=== PATIENT | female | born 1965 | race Caucasian/White ===

== ENCOUNTER 2016-10-08 15:34 | Emergency (ER) | payer BC ==
--- NOTE | 2016-10-08 16:34 | ERNOTE ---
Medical Problem HPI - Narrative Date of Service: 10/08/16 - General Chief Complaint: General Assessment Time Seen by Provider: 10/08/16 16:32 Source: patient, RN notes reviewed Exam Limitations: no limitations - Immun/Allergies/Home Medications Immunizations: IMMUNIZATION HX Immunizations Up to Date Yes History of Influenza Vaccine Yes Hx Pneumococcal Vaccination No Allergies/Adverse Reactions: Allergies No Known Allergies Allergy (Verified 10/08/16 15:55) Home Medications: HOME MEDICATIONS Benzonatate [Tessalon] 200 mg PO TID 10/08/16 [Last Taken Unknown] Cephalexin [Keflex] 500 mg PO TID 10/08/16 [Last Taken Unknown] Cyclobenzaprine HCl [Flexeril] 10 mg PO TID PRN #30 tab 10/08/16 [Last Taken Unknown] Venlafaxine HCl [Effexor] 75 mg PO DAILY 10/08/16 [Last Taken Unknown] - History of Present History Narrative: Justa is a 50 year old female who presents to the ED by private vehicle for right lateral rib pain that began suddenly earlier this afternoon. She was diagnosed with bronchitis 2 weeks ago. She reports that she felt good this morning and like she was finally getting over her illness. She was lifting a bag of ice cream mix over her head today when she felt a "pop" in her ribs and experienced sudden pain. The pain has continued since and is worse with any movement or coughing. She has not taken anything for it. Review of Systems - Review of Systems Constitutional: Present: recent illness. Absent: fever, chills EYE: Present: no symptoms reported ENT: Present: no symptoms reported Respiratory: Present: cough. Absent: shortness of breath, wheezing Cardiology: Absent: palpitations, syncope Gastrointestinal/Abdominal: Absent: nausea, vomiting, abdominal pain Genitourinary: Present: no symptoms reported Musculoskeletal: Absent: back pain, neck pain Skin: Absent: lesions, lumps, change in color Neurological: Absent: headache, dizziness/light-headedness, seizure, weakness, numbness Endocrine: Present: no symptoms reported Hematologic/Lymphatic: Present: no symptoms reported Psych: Present: no symptoms reported - Patient's Past Medical History Patient History - Medical: Depression Patient History - Cardiac/Respiratory: No pertinent hx Patient History - Cancer: No Hx of Cancer Patient History - Surgical Procedures: No surgical history LMP (females 10-50): Menopausal - Social History Living Situations: other Smoking Status: Never smoker Have you smoked in the past 12 months: No Do you dip or chew tobacco: No Alcohol Use: none Drug Use: none Physical Exam - Physical Exam General Appearance: Present: wd/wn, alert, no apparent distress Neck: Present: normal inspection, nontender, supple, full range of motion Respiratory: Present: no respiratory distress, normal breath sounds, no accessory muscle use, lungs clear, chest tenderness - right lateral ribs Cardiovascular/Chest: Present: regular rate, rhythm, no murmur Back Exam: Present: normal inspection, no vertebral tenderness Neurological Exam: Present: alert, oriented, normal mood/affect, no motor/ sensory deficits Skin Exam: Present: normal color, warm/dry ED Progress - Vital Signs Patient's Vital Signs:: I have reviewed the patient's vital signs. Vital Signs: Vital Signs 10/08/16 15:47 Temperature 36.0 C L Pulse Rate 95 Respiratory 20 Rate Blood Pressure 129/58 O2 Sat by Pulse 100 Oximetry - Progress/Reassessment Chief Complaint: General Assessment Progress:: Improved Departure - Departure Clinical Impression: Chest wall muscle strain Qualifiers: Encounter type: initial encounter Qualified Code(s): S29.011A - Strain of muscle and tendon of front wall of thorax, initial encounter Disposition: Home self-care Condition: Good Instructions: Muscle Strain, [id number], Form - Excuse from Work, School, or Physical Activity Additional Instructions: Ibuprofen 600 mg every 6 hours with food as needed for pain Ice or heat to sore area Muscle relaxant as needed, may cause drowsiness Referrals: Jose Gaffney DO [Primary Care Provider] - Prescriptions: Cyclobenzaprine HCl [Flexeril] 10 mg PO TID PRN #30 tab PRN Reason: MUSCLE SPASMS
[2016-10-08] MEDS ORDERED: KETOROLAC TROMETHAMINE 60 MG/2 ML VIAL IM ONE ×2 (16:44→16:56)
[2016-10-08 16:58] VITALS: BP 134/84
[2016-10-08] MEDS ORDERED: CYCLOBENZAPRINE HCL 10 MG TABLET PO ONE (16:58)
[2016-10-08] MEDS ORDERED: CYCLOBENZAPRINE HCL 10 MG TABLET ONE (17:01)
== END 2016-10-08 17:06 | disposition home or self-care (01) ==
LOC: ER 15:34
DX: S29.011A Strain of muscle and tendon of front wall of thorax, initial encounter (principal); X50.9XXA Other and unspecified overexertion or strenuous movements or postures, initial encounter

== ENCOUNTER 2018-05-23 17:17 | Observation (INO) ==
--- NOTE | 2018-05-23 18:16 | ERNOTE ---
Neuro HPI ER Record Presenting Symptoms: confusion Time Seen by Provider: 05/23/18 17:43 Source: patient, family Exam Limitations: clinical condition Immunizations: IMMUNIZATION HX Immunizations Up to Date Yes History of Influenza Vaccine Yes Hx Pneumococcal Vaccination No Allergies/Adverse Reactions: Allergies Allergy/AdvReac Type Severity Reaction Status Date / Time No Known Allergies Allergy Verified 05/23/18 17:30 Home Medications: HOME MEDICATIONS duloxetine 30 mg capsule,delayed release 30 mg PO DAILY #30 cap 05/06/18 [Last Taken Unknown] - History of Present Illness Narrative: Patient is not sure why she is here, feels anxious, but has no other complaints. When asked about work states that she had a normal day without any incidents, knows name and location, not sure about date. States that she lives with her son, not sure about his age. According to her boss, she stole money at the store earlier (which is uncharacteristic for her), when confronted she got angry and made off the wall comments, stated that she wanted to drive her car off the road. She was brought in by a coworker She denies any suicidal thoughts at this point. Her sisters who are with her state that she was started on cymbalta just over a months ago, denies any other medication use Review of Systems - Review of Systems Constitutional: Absent: recent illness, fever EYE: Absent: vision changes ENT: Absent: nose congestion, sore throat Respiratory: Absent: shortness of breath Cardiology: Absent: chest pain Gastrointestinal/Abdominal: Absent: nausea Genitourinary: Present: no symptoms reported Musculoskeletal: Absent: back pain Neurological: Absent: headache, weakness, numbness Medical History (Last Reviewed 05/23/18 @ 18:26 by Khushboo Rebollar MD) Ankle pain Onset Date: Unknown Bronchitis Onset Date: Unknown Bunion Onset Date: Unknown Depression Onset Date: Unknown Foot pain Onset Date: Unknown Internal derangement of knee Onset Date: Unknown Surgical History: Surgical History (Last Reviewed 05/23/18 @ 18:26 by Khushboo Rebollar MD) H/O arthroscopic knee surgery Onset Date: Unknown History of bunionectomy Onset Date: Unknown Family History: Family History (Last Updated 04/26/18 @ 08:34 by Cliff Fiore) Father Cancer Mother Cancer Social History: Preferred Language Swedish Smoking Status Never smoker Abuse History No History of abuse Psych History Hx of Depression,Currently on Meds Alcohol Use none Drug Use none Physical Exam - Physical Exam General Appearance: Present: wd/wn, alert, mild distress, anxious Head Exam: Present: normal inspection, no evidence of injury Eye Exam: Normal inspection: bilateral, PERRL: bilateral, EOMI: bilateral Ears, Nose, Throat: Present: normal ENT inspection, normal pharynx Neck: Present: normal inspection, nontender, supple, full range of motion Respiratory: Present: no respiratory distress, normal breath sounds, no accessory muscle use, lungs clear Cardiovascular/Chest: Present: regular rate, rhythm, no murmur Gastrointestinal/Abdominal: Present: nontender, nondistended, soft Extremity Exam: Present: normal inspection, normal range of motion, no edema Neurological Exam: Present: alert, oriented, normal mood/affect, no motor/ sensory deficits, 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 - Vital Signs Patient's Vital Signs:: I have reviewed the patient's vital signs. Vital Signs: Vital Signs 05/23/18 17:18 Temperature 37.2 C Pulse Rate 97 Respiratory Rate 16 Blood Pressure 158/105 H O2 Sat by Pulse Oximetry 99 - EKG EKG: NSR, other - Twave inversions anterior leads EKG read: Interp. by me - CT/Ultrasound CT/Ultrasound Narrative: CT head: no acute - Progress/Reassessment Chief Complaint: Psychiatric Problem Progress Note-Subjective: 05/23/18 19:32 discussed test results, patient doesn't remember having a CT or having blood drawn offered admission to patient and discussed with sisters, patient agrees to admission at this time 05/23/18 20:00 discussed Departure Clinical Impression: Delirium - Departure Disposition: Still a patient Condition: Good
[2018-05-23 18:20] LABS: Hematocrit 44.6 % (37.0-47.0); Hemoglobin 15.1 gm/dL (12.5-16.0); Mean Cell Volume 85.6 fl (78-100); Mean Corpuscular Hgb Conc 33.9 g/dl (32-36); Mean Platelet Volume 9.9 fl (8-12.5); Neutrophil # 6.5 K/mm3 (1.3-6.0); Neutrophil % 73.6 % (42-75.0); Platelet Count 264 K/mm3 (150-450); Red Blood Count 5.21 M/mm3 (4.2-5.4); Red Cell Distribution Width 12.4 % (11.5-14.0); White Blood Count 8.8 K/mm3 (4.0-10.5)
[2018-05-23 18:41] LABS: ALT 49 U/L (19-67); AST 29 U/L (0-48); Albumin * 4.2 gm/dl (3.4-5.0); Alkaline Phosphatase * 133 U/L (50-170); Anion Gap 16.9 mmol/L (6.8-13.8); BUN/Creatinine Ratio 13.7 (9.0-21.6); Bilirubin, Total 1.3 mg/dL (0.0-1.1); Blood Urea Nitrogen 13 mg/dL (3-23); Ca. Corrected For Albumin 9.1 mg/dL (8.4-10.2); Calcium * 9.6 mg/dL (7.9-10.9); Carbon Dioxide 23.6 mmol/L (24-32.6); Chloride 102 mmol/L (97-106); Glucose * 121 mg/dL (70-110); Potassium 3.5 mmol/L (3.4-4.6); Sodium 139 mmol/L (132-142); TSH * 7.587 uIU/mL (0.358-3.74); Total Protein 7.9 gm/dL (6.2-8.2)
[2018-05-23 18:51] LABS: Urine Bilirubin Negative (NEGATIVE); Urine Blood Negative /ul (NEGATIVE); Urine Ketone Negative (NEGATIVE); Urine Nitrite Negative (NEGATIVE); Urine Protein Negative (NEGATIVE); Urine Urobilinogen Normal (NORMAL); Urine pH 7.5 pH (5.0-7.0)
[2018-05-23 19:04] LABS: Cocaine Ur Negative (NEGATIVE); Urine Barbiturate Negative (NEGATIVE); Urine Benzodiazepines Negative (NEGATIVE); Urine Opiates Negative (NEGATIVE); Urine PCP Negative (NEGATIVE); Urine THC Negative (NEGATIVE)
[2018-05-23 19:10] LABS: Urine Appearance Clear (CLEAR); Urine Color Yellow
[2018-05-23 19:11] LABS: Urine Bacteria None Seen; Urine RBC None Seen /hpf (0-5); Urine WBC None Seen /hpf (0-5)
[2018-05-24 08:22] LABS: ALT 41 U/L (19-67); AST 25 U/L (0-48); Albumin * 3.6 gm/dl (3.4-5.0); Alkaline Phosphatase * 119 U/L (50-170); Anion Gap 13.2 mmol/L (6.8-13.8); BUN/Creatinine Ratio 14.7 (9.0-21.6); Bilirubin, Total 1.4 mg/dL (0.0-1.1); Blood Urea Nitrogen 14 mg/dL (3-23); Ca. Corrected For Albumin 8.7 mg/dL (8.4-10.2); Calcium * 8.7 mg/dL (7.9-10.9); Chloride 104 mmol/L (97-106); Glucose * 113 mg/dL (70-110); Potassium 4.2 mmol/L (3.4-4.6); Sodium 139 mmol/L (132-142); Total Protein 7.1 gm/dL (6.2-8.2)
--- NOTE | 2018-05-24 12:33 | HP ---
Chief Complaint - Chief Complaint Date of Service: 05/24/18 Time of Service: 12:33 Chief Complaint: Altered Mental Status History of Present Illness: Jutsa is a 52 yo female that presented to the [facility] ER for evaluation for abnormal behavior. She was found to be stealing money from work, which is not like her. She realized that she had done it and was trying to figure out how to return the money when she was asked about it by her employer. She was then noted to have confusion and did not know where she was. She was brought to the [facility] ER for evaluation. She had a head CT that was normal. Following the CT she could not remember having had a CT. Family noted her behavior to be strange and not her usual self. She has been depressed over the last few months. She was started on Cymbalta 2 months ago and thought it helped some. Medical History (Last Reviewed 05/29/18 @ 15:11 by Nicole Landry) Bipolar 2 disorder, major depressive episode (Acute) Memory loss of unknown cause Depression Onset Date: Unknown Ankle pain Onset Date: Unknown Bronchitis Onset Date: Unknown Bunion Onset Date: Unknown Foot pain Onset Date: Unknown Internal derangement of knee Onset Date: Unknown Surgical History: Surgical History (Last Reviewed 05/29/18 @ 15:11 by Nicole Landry) H/O arthroscopic knee surgery Onset Date: Unknown History of bunionectomy Onset Date: Unknown Family History: Family History (Last Reviewed 05/23/18 @ 20:58 by Gomez Stephens RN) Father Cancer Mother Cancer Social History: Patient Lives/Resources 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 Smoking Status Never smoker Have you smoked in the past 12 No months Do you dip or chew tobacco No Abuse History No History of abuse Psych History Hx of Depression,Currently on Meds Alcohol Use none Drug Use none Review Of Systems (GEN) - Review of Systems Generalized/Overall Review: Absent: Weakness, Chills, Fever, Fatigue EENTM: Present: No Symptoms Reported Respiratory: Present: No Symptoms Reported Cardiac: Present: No Symptoms Reported Abdominal: Present: No Symptoms Reported Genitourinary: Present: No Symptoms Reported Musculoskeletal: Present: No Symptoms Reported Neurological: Present: Depressed, Emotional Problems, Other - Confusion, memory loss Endocrine: Present: No Symptoms Reported Immunizations: IMMUNIZATION HX Immunizations Up to Date Yes History of Influenza Vaccine Yes Hx Pneumococcal Vaccination No Allergies/Adverse Reactions: Allergies Allergy/AdvReac Type Severity Reaction Status Date / Time No Known Allergies Allergy Verified 05/29/18 15:11 Home Medications: HOME MEDICATIONS Fluticasone/Salmeterol [Advair 250-50 Diskus] 1 puff IH PRN 05/23/18 [Last Taken Unknown] Montelukast Sodium [Singulair] 10 mg PO QID PRN 05/23/18 [Last Taken Unknown] traMADol HCL [Ultram] 50 mg PO PRN 05/23/18 [Last Taken Unknown] lamotrigine 25 mg tablet 25 mg PO .qevening #98 tab 05/27/18 [Last Taken Unknown ] Exam - Exam Vital Signs: Vital Signs - Last Taken Temp 36.6 C 05/24/18 10:56 Pulse 75 05/24/18 10:56 Resp 16 05/24/18 10:56 BP 119/74 05/24/18 10:56 Pulse Ox 98 05/24/18 10:56 Constitutional: Present: Alert, Oriented x3, Cooperative ENT Exam: Present: hearing grossly normal Eye Exam: bilateral eye: normal inspection Respiratory: Present: lungs clear, normal breath sounds Cardiovascular/Chest: Present: regular rate, rhythm, no murmur Abdomen: Present: Normal bowel sounds, soft, nontender, nondistended Extremity: Present: normal inspection Skin Exam: Present: normal color, warm/dry, no cyanosis Lymphatic: Present: no adenopathy Neurologic: Present: 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, alert, normal mood/affect, oriented x 3 Appearance: Present: appropriate appearance, appropriate insight Eye contact: Present: cooperative, good eye contact, normal speech Thoughts: Present: normal thought pattern, no apparent hallucination Diagnostic Studies: Abnormal Lab Results 05/23/18 05/23/18 05/24/18 Range/Units 18:17 18:17 08:09 Neutrophils # 6.5 H (1.3-6.0) K/mm3 Carbon Dioxide 23.6 L (24-32.6) mmol/L Anion Gap 16.9 H (6.8-13.8) mmol/L Random Glucose 121 H 113 H (70-110) mg/dL Total Bilirubin 1.3 H 1.4 H (0.0-1.1) mg/dL TSH 7.587 H (0.358-3.74) uIU/mL Laboratory Results WBC 8.8 K/mm3 (4.0-10.5) 05/23/18 18:17 RBC 5.21 M/mm3 (4.2-5.4) 05/23/18 18:17 Hgb 15.1 gm/dL (12.5-16.0) 05/23/18 18:17 Hct 44.6 % (37.0-47.0) 05/23/18 18:17 MCV 85.6 fl (78-100) 05/23/18 18:17 MCH 29.0 pg (27-31) 05/23/18 18:17 MCHC 33.9 g/dl (32-36) 05/23/18 18:17 RDW 12.4 % (11.5-14.0) 05/23/18 18:17 Plt Count 264 K/mm3 (150-450) 05/23/18 18:17 MPV 9.9 fl (8-12.5) 05/23/18 18:17 Immature Gran % (Auto) 0.10 % (0.001-0.429) 05/23/18 18:17 Immature Gran # (Auto) 0.01 K/mm3 (0.000-0.0310) 05/23/18 18:17 Neutrophils % 73.6 % (42-75.0) 05/23/18 18:17 Lymphocytes % 20.3 % (20-51) 05/23/18 18:17 Monocytes % 5.6 % (0.0-9) 05/23/18 18:17 Eosinophils % 0.1 % (0.0-3.0) 05/23/18 18:17 Basophils % 0.3 % (0.0-1.0) 05/23/18 18:17 Nucleated RBC % 0.0 k/mm3 (0-1) 05/23/18 18:17 Neutrophils # 6.5 K/mm3 (1.3-6.0) H 05/23/18 18:17 Lymphocytes # 1.79 k/mm3 (1.5-3.5) 05/23/18 18:17 Monocytes # 0.5 k/mm3 (0.0-1.0) 08/16/18 18:17 Eosinophils # 0.0 k/mm3 (0.0-0.7) 05/23/18 18:17 Absolute Basophils 0.0 k/mm3 (0.0-0.1) 05/23/18 18:17 VBG pH 7.402 (7.32-7.43) 05/24/18 08:09 Sodium 139 mmol/L (132-142) 05/24/18 08:09 Plasma Sodium 139 mmol/L (130-142) 05/24/18 08:09 Potassium 4.2 mmol/L (3.4-4.6) 05/24/18 08:09 Chloride 104 mmol/L (97-106) 05/24/18 08:09 Carbon Dioxide 26.0 mmol/L (24-32.6) 05/24/18 08:09 Anion Gap 13.2 mmol/L (6.8-13.8) 05/24/18 08:09 BUN 14 mg/dL (3-23) 05/24/18 08:09 Creatinine 0.95 mg/dL (0.4-1.4) 05/24/18 08:09 Est GFR (Non-Af Amer) 66 mL/min (60-130) 05/24/18 08:09 BUN/Creatinine Ratio 14.7 (9.0-21.6) 05/24/18 08:09 Random Glucose 113 mg/dL (70-110) H 05/24/18 08:09 Lactic Acid, Venous 1.5 mmol/L (0.4-2.0) 05/24/18 08:09 Calcium 8.7 mg/dL (7.9-10.9) 05/24/18 08:09 Calcium Adj for Albumin 8.7 mg/dL (8.4-10.2) 05/24/18 08:09 Total Bilirubin 1.4 mg/dL (0.0-1.1) H 05/24/18 08:09 AST 25 U/L (0-48) 05/24/18 08:09 ALT 41 U/L (19-67) 05/24/18 08:09 Alkaline Phosphatase 119 U/L (50-170) 05/24/18 08:09 Troponin I Less than 0.017 ng/mL (0.00-0.10) 05/23/18 19:25 C-Reactive Prot, Quant Less than 0.2 mg/dL (0.0-0.9) 05/23/18 18:17 Total Protein 7.1 gm/dL (6.2-8.2) 05/24/18 08:09 Albumin 3.6 gm/dl (3.4-5.0) 05/24/18 08:09 TSH 7.587 uIU/mL (0.358-3.74) H 05/23/18 18:17 Urine Color Yellow 05/23/18 18:17 Urine Appearance Clear (CLEAR) 05/23/18 18:17 Urine pH 7.5 pH (5.0-7.0) 05/23/18 18:17 Ur Specific [place] 1.010 SP.GR. (1.005-1.010) 05/23/18 18:17 Urine Protein Negative mg/dL (NEGATIVE) 05/23/18 18:17 Urine Glucose (UA) Negative mg/dL (NEGATIVE) 05/23/18 18:17 Urine Ketones Negative mg/dL (NEGATIVE) 05/23/18 18:17 Urine Blood Negative /ul (NEGATIVE) 05/23/18 18:17 Urine Nitrate Negative (NEGATIVE) 05/23/18 18:17 Urine Bilirubin Negative mg/dl (NEGATIVE) 05/23/18 18:17 Urine Urobilinogen Normal EU/dl (NORMAL) 05/23/18 18:17 Ur Leukocyte Esterase Negative /ul (NEGATIVE) 05/23/18 18:17 Urine RBC None seen /hpf (0-5) 05/23/18 18:17 Urine WBC None seen /hpf (0-5) 05/23/18 18:17 Ur Epithelial Cells None seen /hpf (0-5) 05/23/18 18:17 Urine Bacteria None seen (NONE) 05/23/18 18:17 Urine Culture Comments No culture indicated 05/23/18 18:17 Urine Opiates Screen Negative (NEGATIVE) 05/23/18 18:17 Barbiturate Screen Negative (NEGATIVE) 05/23/18 18:17 Ur Phencyclidine Scrn Negative (NEGATIVE) 05/23/18 18:17 Urine Amphetamine Negative (NEGATIVE) 05/23/18 18:17 U Benzodiazepines Scrn Negative (NEGATIVE) 05/23/18 18:17 Urine Cocaine Screen Negative (NEGATIVE) 05/23/18 18:17 Urine Marijuana (THC) Negative (NEGATIVE) 05/23/18 18:17 Serum Ketones Negative (NEGATIVE) 05/24/18 08:09 Assessment/Plan - Narrative Narrative: Justa is a 52 yo female with altered mental status. Head CT and bloodwork is overall normal. There is slight hypothyroidism but nothing significant to expect these symptoms. Will plan to evaluate further with Brain MRI. Will get a psych referral as I am concerned that this is manic behavior caused by the presence of bipolor disorder exacerbated by an antidepressant. At the time of my examination her behavior appears to have returned to baseline. She is alert and oriented x 3 and does not have any evidence of delirium at this time. Although she is still not sure what happened yesterday. - Assessment/Plan (1) Altered mental status Problem: Acute Qualifiers: Altered mental status type: delirium Qualified Code(s): R41.0 - Disorientation, unspecified
--- NOTE | 2018-05-24 12:37 | DS ---
(1) Delirium Problem: Acute Description of Stay: Cliff is a 52 yo female that was admitted for altered mental status with memory loss, confusion, and impulsive behaviors. She was evaluated in the ER and bloodwork, urine, tox screen, and head CT were negative for acute abnormalities. She was admitted to observation for neuro checks and a brain mri. Mentation improved and Brain MRI was normal. There was concern that her symptoms were of a result of psychosis from undiagnosed bipolar disorder with treatment of cymbalta. She has been on Cymbalta for 2 months prior to admission. Psychiatry was consulted and had similar concerns. Cymbalta was recommended to be discontinued and she will follow up with psychiatry in 1 week. She is medically cleared for discharge. Procedures Performed: none Results and Findings: Lab Pending Results 05/23/18 18:17: WBC 8.8, RBC 5.21, Hgb 15.1, Hct 44.6, MCV 85.6, MCH 29.0, MCHC 33.9, RDW 12.4, Plt Count 264, MPV 9.9, Immature Gran % (Auto) 0.10, Immature Gran # (Auto) 0.01, Neutrophils % 73.6, Lymphocytes % 20.3, Monocytes % 5.6, Eosinophils % 0.1, Basophils % 0.3, Nucleated RBC % 0.0, Neutrophils # 6.5 H, Lymphocytes # 1.79, Monocytes # 0.5, Eosinophils # 0.0, Absolute Basophils 0.0 05/23/18 18:17: Sodium 139, Plasma Sodium 139, Potassium 3.5, Chloride 102, Carbon Dioxide 23.6 L, Anion Gap 16.9 H, BUN 13, Creatinine 0.95, Est GFR (Non- Af Amer) 66, BUN/Creatinine Ratio 13.7, Random Glucose 121 H, Calcium 9.6, Calcium Adj for Albumin 9.1, Total Bilirubin 1.3 H, AST 29, ALT 49, Alkaline Phosphatase 133, C-Reactive Prot, Quant Less than 0.2, Total Protein 7.9, Albumin 4.2, TSH 7.587 H 05/23/18 18:17: Urine Color Yellow, Urine Appearance Clear, Urine pH 7.5, Ur Specific [place] 1.010, Urine Protein Negative, Urine Glucose (UA) Negative, Urine Ketones Negative, Urine Blood Negative, Urine Nitrate Negative, Urine Bilirubin Negative, Urine Urobilinogen Normal, Ur Leukocyte Esterase Negative, Urine RBC None seen, Urine WBC None seen, Ur Epithelial Cells None seen, Urine Bacteria None seen, Urine Culture Comments No culture indicated 05/23/18 18:17: Urine Opiates Screen Negative, Barbiturate Screen Negative, Ur Phencyclidine Scrn Negative, Urine Amphetamine Negative, U Benzodiazepines Scrn Negative, Urine Cocaine Screen Negative, Urine Marijuana (THC) Negative 05/23/18 19:25: Troponin I Less than 0.017 05/24/18 08:09: VBG pH 7.402 05/24/18 08:09: Sodium 139, Plasma Sodium 139, Potassium 4.2, Chloride 104, Carbon Dioxide 26.0, Anion Gap 13.2, BUN 14, Creatinine 0.95, Est GFR (Non-Af Amer) 66, BUN/Creatinine Ratio 14.7, Random Glucose 113 H, Calcium 8.7, Calcium Adj for Albumin 8.7, Total Bilirubin 1.4 H, AST 25, ALT 41, Alkaline Phosphatase 119, Total Protein 7.1, Albumin 3.6, Serum Ketones Negative 05/24/18 08:09: Lactic Acid, Venous 1.5 Discharge Location: Home Disposition: Home self-care Condition: Good Discharge Activity: Activity as tolerated Discharge Diet: General/regular food Referrals: Dona Orourke ARNP [[facility] Sur[facility]/General Dermatologist] - One Week Stormy Farooq ARNP [[facility]] - One Week Problem Oriented Discharge Instructions to Patient/Family: Delirium Additional Patient Instructions (free text): Schedule f/u with Dona in psychiatry next week. Give patient packet prior to discharge. Complete Home Medications List: Complete Home Medication List: Fluticasone/Salmeterol [Advair 250-50 Diskus] 1 puff IH PRN 05/23/18 Montelukast Sodium [Singulair] 10 mg PO QID PRN 05/23/18 traMADol HCL [Ultram] 50 mg PO PRN 05/23/18
--- NOTE | 2018-05-24 13:10 | CONS ---
HPI - General Date of Service: 05/24/18 Narrative: Patient is a 52 year old female with a history of depression who was brought to the emergency department yesterday for agitation and confusion. Per medical record, patient had a meeting at work yesterday regarding money that she had stolen. Patient reported that she had tried to determine a way to return money without anybody finding out. While at the work meeting, patient became agitated and made strange statements at that time so her coworker brought her to the emergency department and patient was subsequently admitted to the hospital. Patient was confused in the emergency department and intermittently overnight. Patient is currently pleasant and alert and oriented x3. Per patient, the only thing that has changed recently is that she had started Cymbalta a little over a month ago. Per patient, Cymbalta was started for depression and anxiety. She reports she was on Lexapro prior to Cymbalta and tolerated it but it was ineffective in managing her depression and anxiety. Patient states she is frequently depressed and irritable and has frequent and severe mood swings. Patient's sister is present in room and confirms that patient has frequent irritability and mood swings. Patient states she doesn't recall yesterday's events at all. CT brain was performed while patient was hospitalized and was negative for any acute findings. Tox screen was negative. Patient is not acutely homicidal or suicidal. Visit lasts approximately 10 minutes. Source: patient, family, RN notes reviewed Exam Limitations: no limitations - History of Present Illness Allergies/Adverse Reactions: Allergies No Known Allergies Allergy (Verified 05/23/18 20:57) Home Medications: Home Medications Medication Instructions Recorded Last Taken duloxetine 30 mg capsule,delayed 30 mg PO DAILY #30 cap 05/06/18 05/23/18 release Fluticasone/Salmeterol [Advair 1 puff IH PRN 05/23/18 Unknown 250-50 Diskus] Montelukast Sodium [Singulair] 10 mg PO QID PRN 05/23/18 Unknown traMADol HCL [Ultram] 50 mg PO PRN 05/23/18 Unknown Review of Systems - Review of Systems Generalized/Overall Review: Present: No Symptoms Reported Physical Examination - Exam Vital Signs: Vital Signs - Last Taken Temp 36.6 C 05/24/18 10:56 Pulse 75 05/24/18 10:56 Resp 16 05/24/18 10:56 BP 119/74 05/24/18 10:56 Pulse Ox 98 05/24/18 10:56 O2 Oxygen Delivery Method Room Air Constitutional: Present: Alert, Oriented x3, Cooperative, No distress Neurologic: Present: alert, normal mood/affect, oriented x 3 Appearance: Present: appropriate appearance Eye contact: Present: cooperative, good eye contact, normal speech Thoughts: Present: normal thought pattern, no apparent hallucination - Results and Findings: Narrative: Based upon history and symptoms, patient likely has bipolar depression and Cymbalta may have triggered hypomanic symptoms. Patient advised to stop taking Cymbalta 30mg PO QD. Patient to follow up with psychiatry on outpatient basis. Lab/Microbiology results last 24 hrs: Abnormal/Pending Laboratory Last 24 HRS 05/24/18 05/23/18 05/23/18 08:09 18:17 18:17 Neutrophils # 6.5 H Carbon Dioxide 23.6 L Anion Gap 16.9 H Random Glucose 113 H 121 H Total Bilirubin 1.4 H 1.3 H TSH 7.587 H - Assessments/Findings (1) Bipolar II disorder Problem: Acute
[2018-05-24 15:12] VITALS: BP 121/72
== END 2018-05-24 15:25 | disposition home or self-care (01) ==
LOC: ER 17:17 → MS 17:17
PROVIDERS: ADMIT Family Medicine; ATTEND Family Medicine
DX: R41.0 Disorientation, unspecified; F32.9 Major depressive disorder, single episode, unspecified; F31.81 Bipolar II disorder
CPT/HCPCS: 36415; 70450; 70553; 80053; 80307; 81001; 82009; 82800; 83605; 84443; 84481; 84484; 85025; 86140; 93005; 99284; G0378; G0479